=== PATIENT | female | born 1970 | race Caucasian/White ===

== ENCOUNTER 2019-05-19 13:08 | Inpatient (IN) | payer BC, OTHER ==
[2019-05-19] MEDS ORDERED: SODIUM CHLORIDE 0.9% 1,000 ML IV STA (13:50)
[2019-05-19] MEDS ORDERED: ASPIRIN 81 MG PO STA (13:50)
[2019-05-19] MEDS ORDERED: PANTOPRAZOLE 40 MG/10 ML VIAL IVP STA (13:51)
[2019-05-19] MEDS ORDERED: MAG HYDROX/AL HYDROX/SIMETH 30 ML, HYOSCYAMINE ELIXIR 10 ML, CIMETIDINE HCL 300 MG, LID... PO STA ×4 (13:51)
[2019-05-19 14:05] LABS: Basophils % (A) 0 %; Eosinophils # (A) 0.1 k/uL (0-0.7); Eosinophils % (A) 1 %; HCT 37.8 % (34.0-46.0); HGB 12.1 gm/dL (11.4-16.0); Lymphocytes # (A) 1.2 k/uL (1.0-4.8); Lymphocytes % (A) 11 %; MCHC 31.9 g/dL (31.0-37.0); MCV 78.2 fL (80.0-100.0); Mean Platelet Volume 7.7; Microcytosis Slight; Monocytes # (A) 0.5 k/uL (0-1.0); Monocytes % (A) 5 %; Neutrophils # (A) 8.5 k/uL (1.3-7.7); Neutrophils % (A) 81 %; Platelet Count 241 k/uL (150-450); RBC 4.83 m/uL (3.80-5.40); RDW 15.9 % (11.5-15.5); WBC 10.5 k/uL (3.8-10.6)
[2019-05-19 14:14] LABS: ALT 23 U/L (9-52); AST 23 U/L (14-36); African American GFR (CKD) >90 (>60 ml/min/1.73 sqM); Albumin 4.1 g/dL (3.5-5.0); Alkaline Phosphatase 112 U/L (38-126); Amylase 209 U/L (30-110); Anion Gap 12 mmol/L; Blood Urea Nitrogen 10 mg/dL (7-17); Calcium 9.3 mg/dL (8.4-10.2); Carbon Dioxide 21 mmol/L (22-30); Chloride 102 mmol/L (98-107); Glucose 194 mg/dL (74-99); Potassium 3.9 mmol/L (3.5-5.1); Sodium 135 mmol/L (137-145); Total Bilirubin 0.5 mg/dL (0.2-1.3); Total Protein 7.5 g/dL (6.3-8.2)
[2019-05-19 14:21] LABS: Partial Thromboplastin Time 27.4 sec (22.0-30.0); Prothrombin Time 10.6 sec (9.0-12.0)
[2019-05-19 14:27] LABS: D-Dimer 0.64 mg/L FEU (<0.60)
--- NOTE | 2019-05-19 14:48 | ED ---
General Adult HPI <Sravan Velazquez - Last Filed: 05/19/19 16:20> - General Source: patient, RN notes reviewed, old records reviewed Mode of arrival: ambulatory Limitations: no limitations <Cristela Ibanez - Last Filed: 05/19/19 16:37> - General Chief complaint: Chest Pain Stated complaint: R/O heart attack Time Seen by Provider: 05/19/19 13:44 - History of Present Illness Initial comments: 48-year-old female presents emergency department today for G complaint of epigastric abdominal pain. Symptoms started after drinking some coffee today. She had some symptoms on . She had her gallbladder evaluated the past but was told this was benign. Patient states she's had some nausea and complains of some epigastric pain radiates towards her back. Patient reports she went to urgent care and they did EKG was reviewed to be abnormal. Patient was sent in to rule out heart attack. Patient states that she does have a family history of heart disease. She reports no history of diabetes hypertens ion or hyperlipidemia. (Cristela Ibanez) - Related Data Allergies Allergy/AdvReac Type Severity Reaction Status Date / Time No Known Allergies Allergy Verified 05/19/19 13:18 Review of Systems ROS Other: All systems not noted in ROS Statement are negative. <Sravan Velazquez - Last Filed: 05/19/19 16:20> ROS Other: All systems not noted in ROS Statement are negative. <Cristela Ibanez - Last Filed: 05/19/19 16:37> ROS Statement: Those systems with pertinent positive or pertinent negative responses have been documented in the HPI. Past Medical History Past Medical History: GERD/Reflux Additional Past Medical History / Comment(s): IBS History of Any Multi-Drug Resistant Organisms: None Reported Past Surgical History: No Surgical Hx Reported Past Psychological History: No Psychological Hx Reported Smoking Status: Never smoker Past Alcohol Use History: None Reported Past Drug Use History: None Reported <Cristela Ibanez - Last Filed: 05/19/19 16:37> General Exam Limitations: no limitations General appearance: alert, in no apparent distress Head exam: Present: atraumatic, normocephalic, normal inspection Eye exam: Present: normal appearance, PERRL, EOMI. Absent: scleral icterus, conjunctival injection, periorbital swelling ENT exam: Present: normal exam, mucous membranes moist Neck exam: Present: normal inspection. Absent: tenderness, meningismus, lymphadenopathy Respiratory exam: Present: normal lung sounds bilaterally. Absent: respiratory distress, wheezes, rales, rhonchi, stridor Cardiovascular Exam: Present: regular rate, normal rhythm, normal heart sounds. Absent: systolic murmur, diastolic murmur, rubs, gallop, clicks GI/Abdominal exam: Present: soft, tenderness (Epigastric tenderness.) Extremities exam: Present: normal inspection, full ROM Back exam: Present: normal inspection Neurological exam: Present: alert Psychiatric exam: Present: normal affect, normal mood Skin exam: Present: warm, dry, intact, normal color. Absent: rash <Cristela Ibanez - Last Filed: 05/19/19 16:37> - General Exam Comments Initial Comments: Pleasant 48-year-old female. No significant distress. 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 Case discussed with Dr. Louise, who will admit covering for Dr. Patterson. (Sravan Velazquez) 8 rolled female originally presented for epigastric back and pain rating towards her back. Symptoms started she drank some coffee this point. She initially thought is related to gastritis and GERD. She states she went to urgent care who did an EKG. This EKG was reviewed to be abnormal with some inferior changes and sent her in for evaluation. She denies any chest pain at this time. Patient's labwork was reviewed. She did have an elevated amylase and lipase concern for pancreatitis. Blood sugar was mildly elevated 176 over this is not a fasting lab. Patient's EKG shows continued changes of the T-wave inversion in lead 3. Patient d-dimer slightly elevated. Due to concern for pancreatitis elevated d-dimer CT chest angiogram was completed which is negative for PE would not a completely adequate study. However low clinical suspicion for PE as Patient is not hypoxic and denies any chest pain or shortness of breath. Patient CT abdomen and pelvis was completed and did show some inflammatory changes around the pancreas. And simvastatin steatosis. No gallbladder changes. At this time Patient was admitted for acute pancreatitis. We will be troponin every 6 hours. (Cristela Ibanez) - Lab Data Lab Results 05/19/19 05/19/19 05/19/19 Range/Units 13:50 13:50 13:50 WBC 10.5 (3.8-10.6) k/uL RBC 4.83 (3.80-5.40) m/uL Hgb 12.1 (11.4-16.0) gm/dL Hct 37.8 (34.0-46.0) % MCV 78.2 L (80.0-100.0) fL MCH 25.0 (25.0-35.0) pg MCHC 31.9 (31.0-37.0) g/dL RDW 15.9 H (11.5-15.5) % Plt Count 241 (150-450) k/uL Neutrophils % 81 % Lymphocytes % 11 % Monocytes % 5 % Eosinophils % 1 % Basophils % 0 % Neutrophils # 8.5 H (1.3-7.7) k/uL Lymphocytes # 1.2 (1.0-4.8) k/uL Monocytes # 0.5 (0-1.0) k/uL Eosinophils # 0.1 (0-0.7) k/uL Basophils # 0.0 (0-0.2) k/uL Microcytosis Slight PT 10.6 (9.0-12.0) sec INR 1.0 (<1.2) APTT 27.4 (22.0-30.0) sec D-Dimer 0.64 H (<0.60) mg/L FEU Sodium 135 L (137-145) mmol/L Potassium 3.9 (3.5-5.1) mmol/L Chloride 102 (98-107) mmol/L Carbon Dioxide 21 L (22-30) mmol/L Anion Gap 12 mmol/L BUN 10 (7-17) mg/dL Creatinine 0.68 (0.52-1.04) mg/dL Est GFR (CKD-EPI)AfAm >90 (>60 ml/min/1.73 sqM) Est GFR (CKD-EPI)NonAf >90 (>60 ml/min/1.73 sqM) Glucose 194 H (74-99) mg/dL Calcium 9.3 (8.4-10.2) mg/dL Magnesium 2.0 (1.6-2.3) mg/dL Total Bilirubin 0.5 (0.2-1.3) mg/dL AST 23 (14-36) U/L ALT 23 (9-52) U/L Alkaline Phosphatase 112 (38-126) U/L Troponin I (0.000-0.034) ng/mL NT-Pro-B Natriuret Pep pg/mL Total Protein 7.5 (6.3-8.2) g/dL Albumin 4.1 (3.5-5.0) g/dL Amylase 209 H (30-110) U/L Lipase 1967 H (23-300) U/L 05/19/19 05/19/19 Range/Units 13:50 13:50 WBC (3.8-10.6) k/uL RBC (3.80-5.40) m/uL Hgb (11.4-16.0) gm/dL Hct (34.0-46.0) % MCV (80.0-100.0) fL MCH (25.0-35.0) pg MCHC (31.0-37.0) g/dL RDW (11.5-15.5) % Plt Count (150-450) k/uL Neutrophils % % Lymphocytes % % Monocytes % % Eosinophils % % Basophils % % Neutrophils # (1.3-7.7) k/uL Lymphocytes # (1.0-4.8) k/uL Monocytes # (0-1.0) k/uL Eosinophils # (0-0.7) k/uL Basophils # (0-0.2) k/uL Microcytosis PT (9.0-12.0) sec INR (<1.2) APTT (22.0-30.0) sec D-Dimer (<0.60) mg/L FEU Sodium (137-145) mmol/L Potassium (3.5-5.1) mmol/L Chloride (98-107) mmol/L Carbon Dioxide (22-30) mmol/L Anion Gap mmol/L BUN (7-17) mg/dL Creatinine (0.52-1.04) mg/dL Est GFR (CKD-EPI)AfAm (>60 ml/min/1.73 sqM) Est GFR (CKD-EPI)NonAf (>60 ml/min/1.73 sqM) Glucose (74-99) mg/dL Calcium (8.4-10.2) mg/dL Magnesium (1.6-2.3) mg/dL Total Bilirubin (0.2-1.3) mg/dL AST (14-36) U/L ALT (9-52) U/L Alkaline Phosphatase (38-126) U/L Troponin I <0.012 (0.000-0.034) ng/mL NT-Pro-B Natriuret Pep 50 pg/mL Total Protein (6.3-8.2) g/dL Albumin (3.5-5.0) g/dL Amylase (30-110) U/L Lipase (23-300) U/L 05/19/19 16:25 EKG is performed at 1420 shows normal sinus rhythm inferior infarct age undetermined. Abnormal EKG. Ventricular rate of 82 bpm. Intervals 166 ms. QRS duration is 74 ms. QT QTc is 376/439 ms. Reviewed patient's EKG at 11:52 AM shows no acute changes. (Cristela Ibanez) - Radiology Data Patient was breathing during exam CT angios lipoma or embolus. Many of the lobar and segmental more distal arterial branches are nondiagnostic and emboli in these locations cannot be adequately excluded on basis of the study. Hypoventilatory changes. Hepatic C ptosis noted. This was read by Dr. Lee. X-ray is negative for any acute crit primary process. CT abdomen and pelvis shows atrophic pancreas with subtle fat stranding along the pancreatic head. Correlate for mild acute pancreatitis. Borderline hepatomegaly with hepatic steatosis. Mild distal sigmoid diverticulosis IUD in place with a 2.1 cm left fundal fibroid. (Cristela Ibanez) Disposition <Sravan Velazquez - Last Filed: 05/19/19 16:20> Is patient prescribed a controlled substance at d/c from ED?: No Time of Disposition: 16:37 <Cristela Ibanez - Last Filed: 05/19/19 16:37> Clinical Impression: Pancreatitis, EKG abnormalities Disposition: ADMITTED IP TO THIS HOSP Condition: Good Instructions (If sedation given, give patient instructions): Pancreatitis (ED) Referrals: Trudy Patterson DO [Primary Care Provider] - 1-2 days
--- NOTE | 2019-05-19 15:17 | XR ---
EXAMINATION TYPE: XR chest 2V DATE OF EXAM: 05/19/2019 COMPARISON: None HISTORY: 48-year-old female with chest pain TECHNIQUE: PA and lateral views FINDINGS: The cardiomediastinal silhouette, aorta, and pulmonary vasculature are within normal limits. Lungs an d pleural spaces are clear. IMPRESSION: No acute cardiopulmonary process.
--- NOTE | 2019-05-19 15:34 | CT ---
EXAMINATION TYPE: CT chest angio for PE DATE OF EXAM: 05/19/2019 COMPARISON: None HISTORY: 48-year-old female Epigastric and Upper Abdominal pain. TECHNIQUE: Contiguous axial scanning of the chest performed with IV Contrast, patient injected with 1 00 mL of Isovue 370. Coronal/sagittal MIP reconstructions performed. CT DLP: 569.3 mGycm Automated exposure control for dose reduction was used. FINDINGS: Heart upper limits of normal in size without pericardial effusion. While there is satisfactory opacification of the pulmonary arterial system, the patient is breathing during the scan degrading assessment. No large central pulmonary embolus. Many of the lobar, segmenta l, and subsegmental branches are nondiagnostic and emboli in these locations cannot be adequately exc luded on the basis of this study. Aorta normal caliber with conventional branching anatomy. Scattered nonenlarged lymph nodes. Evaluation of the lungs shows an atelectasis. Breathing motion artifacts without consolidation or ple ural effusion. Visualized upper abdomen shows low-attenuation of the liver. Bones: No osseous destructive process. IMPRESSION: 1. PATIENT WAS BREATHING DURING THE SCAN. NO LARGE CENTRAL PULMONARY EMBOLUS. MANY OF THE LOBAR, SEGM ENTAL, AND MORE DISTAL ARTERIAL BRANCHES ARE NONDIAGNOSTIC AND EMBOLI IN THESE LOCATIONS CANNOT BE AD EQUATELY EXCLUDED ON THE BASIS OF THIS STUDY. 2. HYPOVENTILATORY CHANGES. 3. HEPATIC STEATOSIS.
--- NOTE | 2019-05-19 16:01 | CT ---
EXAMINATION TYPE: CT abdomen pelvis w con DATE OF EXAM: 05/19/2019 COMPARISON: 06/25/2016 HISTORY: 48-year-old female Epigastric and Upper Abdominal pain. TECHNIQUE: Contiguous axial scanning of the abdomen and pelvis following administration of 100 ml Iso johanna 300 IV contrast. Delayed images through the kidneys and coronal/sagittal reconstructions perform ed. CT DLP: 1619.6 mGycm Automated exposure control for dose reduction was used. FINDINGS: The heart is normal size without pericardial effusion. Liver borderline enlarged at 17.7 cm with low attenuation and no focal liver lesion or biliary ductal dilatation. Portal venous system is patent. Adrenal glands, kidneys, and spleen appear within normal limits. Pancreas atrophic with mild fat stranding along the pancreatic head and neck region. Some prominent adjacent Mesenteric lymph nodes measuring up to 5 mm in the mid abdomen likely reactive. No dilated small bowel, free fluid, or free air. Normal appendix. Scattered mild stool. Mild distal sigmoid diverticulosis. No pericolonic inflammator y change. Uterus anteverted with IUD in place in the left fundal calcified 2.1 cm focal fibroid. Multiple pelvi c phleboliths. Both ovaries are visualized. No abnormal fluid collection in the pelvis or pelvic lymp hadenopathy. Bones: Facet arthropathy lower lumbar spine. IMPRESSION: 1. ATROPHIC PANCREAS WITH SUBTLE FAT STRANDING ALONG THE PANCREATIC HEAD AND NECK REGION. CORRELATE F OR MILD ACUTE PANCREATITIS. 2. BORDERLINE HEPATOMEGALY (17.7 CM) WITH HEPATIC STEATOSIS. 3. MILD DISTAL SIGMOID DIVERTICULOSIS. IUD IN PLACE WITH A 2.1 CM LEFT FUNDAL FIBROID.
[2019-05-19] MEDS ORDERED: MORPHINE SULFATE 4 MG/ML SYRINGE IV PRN (16:37)
[2019-05-19] MEDS ORDERED: ONDANSETRON 4 MG/2 ML VIAL IVP PRN (16:37)
[2019-05-19] MEDS ORDERED: KETOROLAC 30 MG/ML 1 ML VIAL IVP PRN (16:37)
[2019-05-19] MEDS ORDERED: NALOXONE 0.4 MG/ML 1 ML VIAL IV PRN (16:37)
[2019-05-19] MEDS ORDERED: ACETAMINOPHEN TAB 325 MG TAB PO PRN (16:37)
[2019-05-19] MEDS ORDERED: HYDROcodone/APAP 5-325MG 1 EACH TAB PO PRN (16:56)
[2019-05-19] MEDS ORDERED: ALPRAZolam 0.25 MG TAB PO PRN (16:56)
[2019-05-19] MEDS ORDERED: TEMAZEPAM 15 MG CAP PO PRN (16:56)
[2019-05-19] MEDS ORDERED: VANCOMYCIN IV PER PHARMACY 1 EACH MISC MISCELLANE PRN (17:13)
[2019-05-19] MEDS ORDERED: VANCOMYCIN 1,750 MG in SODIUM CHLORIDE 0.9% 500 ML 500 ML IVPB ONE (18:00)
--- NOTE | 2019-05-19 18:43 | HP ---
HISTORY AND PHYSICAL . CHIEF COMPLAINT: Epigastric pain. HISTORY OF PRESENT ILLNESS: This 48-year-old woman with a past medical history of GERD, history of irritable bowel syndrome, being followed by Dr. Tomlin in the outpatient setting, was complaining of epigastric pain. The patient has some nausea also. The pain was radiating to the back and the patient came to [facility] and was admitted to the hospital for further evaluation and treatment. Amylase levels elevated. CT scan also showed some changes of pancreatitis and there is no history of fever, rigors or chills. No history of headache, loss of consciousness or seizures at this time. EKG showed some changes in the inferior leads. CT angio was negative for acute pulmonary embolism. The cardiology evaluation in progress also. Troponins are negative also at this time. There is no history of fever, rigors or chills. No history of headache, loss of consciousness, seizures, shortness of breath, hematochezia, melena at this time. The patient also had left leg cellulitis, was taking taken Bactrim in the outpatient setting. PAST MEDICAL HISTORY: GERD, history of irritable bowel syndrome. MEDICATIONS: Home medications are none. ALLERGIES: None. FAMILY HISTORY: No history of heart disease or strokes in the family. 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 No history of smoking. Occasional alcohol intake. REVIEW OF SYSTEMS: ENT: No diminished vision. No diminished hearing. CARDIOVASCULAR system: As mentioned earlier. RESPIRATORY: As mentioned earlier. GI mentioned earlier. no dysuria or hematuria. NERVOUS SYSTEM: No numbness or weakness. ALLERGY/IMMUNOLOGY: No asthma or hayfever. MUSCULOSKELETAL as mentioned earlier. HEMATOLOGY/ONCOLOGY: No history of anemia. ENDOCRINE: No history of diabetes or hypothyroidism. CONSTITUTIONAL: As mentioned earlier. DERMATOLOGY negative. RHEUMATOLOGY: Negative. PSYCHIATRIC: As mentioned earlier. PHYSICAL EXAMINATION: Alert and oriented x3. Pulse is 91, blood pressure 146/85, respiration 18, temp 97.8, pulse ox 98% on room air. HEENT: Conjunctivae normal. NECK: No JVD. CARDIOVASCULAR: S1, S2 muffled. RESPIRATORY: Breath sounds diminished in the bases. No rhonchi. No crackles. ABDOMEN: Soft. Mild diffuse tenderness in the epigastric region. No guarding. No rigidity. No mass palpable. LEGS: No edema. No swelling. NERVOUS SYSTEM: Higher functions as mentioned earlier. Moves all four extremities. No focal motor or sensory deficits. LYMPHATICS: No lymph nodes palpable in the neck, axillae or groin. SKIN: No ulcers. No rashes. No bleeding. JOINTS: No active deforming arthropathy. LAB STUDIES: WBC 10.5, hemoglobin is 12.1, and D-dimer is 0.64. Sodium 135 and glucose 194. Amylase is 209 and lipase is 196. ASSESSMENT: 1. Epigastric pain, possible acute pancreatitis of unknown etiology. 2. Rule out coronary artery disease. 3. ST-T changes in the EKG. 4. Hyponatremia. 5. Elevated amylase and lipase. 6. Hyponatremia. 7. Gastroesophageal reflux disease. 8. History of irritable bowel syndrome. 9. Left leg cellulitis. RECOMMENDATIONS AND DISCUSSION: In this 48 -year-old woman who presented with multiple complex medical issues, we will monitor the patient closely. Continue the current medications, management and symptomatic treatment. We will obtain gastroenterology evaluation. Otherwise, I would also recommend ultrasound of the gallbladder also. Otherwise, Gastroenterology and cardiology consultations. Guarded prognosis because of multiple complex medical issues. Further recommendations to follow. Once again the prognosis guarded. The patient is currently stable at this time. MMODL / IJN: [id number] /
[2019-05-19] MEDS: SODIUM CHLORIDE 0.9% 1,000 ML IV SCH (19:59)
[2019-05-19 20:44] LABS: Appearance,Urine Clear (Clear); Bacteria,Urine Rare /hpf; Bilirubin,Urine Negative (Negative); Blood,Urine Small (Negative); Color,Urine Yellow; Glucose,Urine (UA) Negative (Negative); Ketones,Urine Trace (Negative); Leukocyte Esterase,Urine Negative (Negative); Nitrite,Urine Negative (Negative); PH, Urine 6.5 (5.0-8.0); Protein,Urine Negative (Negative); RBC,Urine 8 /hpf (0-5); Squamous Epithelial Cell,Urine 2 /hpf (0-4); Urobilinogen,Urine <2.0 mg/dL (<2.0); WBC,Urine 2 /hpf (0-5)
[2019-05-19 20:48] LABS: Specific Gravity,Urine 1.046 (1.001-1.035)
[2019-05-19] MEDS: IBUPROFEN 400 MG TAB PO PRN (22:21)
--- NOTE | 2019-05-19 22:27 | US ---
EXAMINATION TYPE: US gallbladder DATE OF EXAM: 05/19/2019 COMPARISON: CT same-day CLINICAL HISTORY: 48-year-old female with gallstones. Epigastric pain TECHNIQUE: Multiple sonographic images of the right upper quadrant are obtained. FINDINGS: EXAM MEASUREMENTS: Liver Length: 15.2 cm Gallbladder Wall: 0.2 cm CBD: 0.4 cm Right Kidney: 10.1 x 4.8 x 4.9 cm Computer Information Systems Professor notes: Technically difficult study due to overlying bowel gas. Pancreas: Obscured by bowel gas Liver: Echogenic and difficult to penetrate. This secondarily limits assessment for focal lesions. Gallbladder: Abnormal gallbladder distention, wall thickening, pericholecystic fluid, or shadowing c alculi. Evidence for sonographic Beckman's sign: No CBD: wnl Right Kidney: No hydronephrosis. The lower pole partially obscured by bowel gas. IMPRESSION: 1. Degree of hepatic steatosis limits assessment for focal lesions. Correlate with LFTs, lipid profil e, and patient risk factors. 2. No cholelithiasis or acute cholecystitis. 3. The pancreas is obscured by bowel gas. 4. No biliary ductal dilatation.
[2019-05-20] MEDS: SODIUM CHLORIDE 0.9% 1,000 ML IV SCH ×2 (03:39→21:03)
[2019-05-20 06:01] LABS: Anisocytosis Slight; Basophils % (A) 0 %; Eosinophils # (A) 0.2 k/uL (0-0.7); Eosinophils % (A) 2 %; HCT 36.3 % (34.0-46.0); Lymphocytes # (A) 1.3 k/uL (1.0-4.8); Lymphocytes % (A) 14 %; MCH 26.4 pg (25.0-35.0); MCHC 33.1 g/dL (31.0-37.0); MCV 79.6 fL (80.0-100.0); Mean Platelet Volume 7.9; Monocytes # (A) 0.4 k/uL (0-1.0); Monocytes % (A) 5 %; Neutrophils % (A) 77 %; Platelet Count 240 k/uL (150-450); RBC 4.56 m/uL (3.80-5.40); RDW 16.5 % (11.5-15.5)
[2019-05-20 06:21] LABS: ALT 21 U/L (9-52); AST 20 U/L (14-36); African American GFR (CKD) >90 (>60 ml/min/1.73 sqM); Albumin 3.6 g/dL (3.5-5.0); Alkaline Phosphatase 99 U/L (38-126); Amylase 202 U/L (30-110); Anion Gap 11 mmol/L; Blood Urea Nitrogen 9 mg/dL (7-17); Calcium 8.7 mg/dL (8.4-10.2); Carbon Dioxide 21 mmol/L (22-30); Chloride 106 mmol/L (98-107); Cholesterol 131 mg/dL (<200); Glucose 153 mg/dL (74-99); HDL Cholesterol 60 mg/dL (40-60); LDL Cholesterol,Calculated 50 mg/dL (0-99); Potassium 4.1 mmol/L (3.5-5.1); Sodium 138 mmol/L (137-145); Total Bilirubin 0.7 mg/dL (0.2-1.3); Total Protein 6.9 g/dL (6.3-8.2); Triglycerides 103 mg/dL (<150)
[2019-05-20] MEDS ORDERED: PANTOPRAZOLE 40 MG/10 ML VIAL IV SCH (09:00)
[2019-05-20] MEDS: IBUPROFEN 400 MG TAB PO PRN (09:31)
[2019-05-20] MEDS: VANCOMYCIN 1,500 MG in SODIUM CHLORIDE 0.9% 250 ML IVPB SCH ×2 (09:32→21:12)
--- NOTE | 2019-05-20 09:38 | P.CONS ---
History of Present Illness - Reason for Consult Consult date: 05/19/19 Left leg wound and cellulitis Requesting physician: Cristian Louise - Chief Complaint Epigastric pain 1 day, left leg wound 1 week - History of Present Illness Patient is a 48-year-old female presenting to the ER at [facility] with an epigastric pain that apparently started this morning after drinking coffee the patient did have similar pain 2 days prior that resolved without any intervention patient describing her pain in the epigastric area to be more of a sharp in nature with intensity of 7-8 out of 10 and irritation to the back with associated nausea but no vomiting denies having any fever or any chills with the symptom has the patient was evaluated by the ER physician CT angiogram was nondiagnostic as the patient was breathing during the procedure she did have CT of abdominal pelvis that has been suspicious for pancreatitis and the patient did have elevated amylase and lipase, Patient was also noticed to have a left leg wound with minimal cellulitis patient says started as a pimple about a week ago and has slight increase in size with surrounding redness he did have some dull ache pain to the left leg area intensity is 2-3 out of 10 and no radiation the patient says she was seen by her primary care physician has been started on Bactrim with the patient has not started Review of Systems CONSTITUTIONAL: Positive for weakness. Denies high-grade Fever EYES: No complaint. ENT:No complaint. RESPIRATORY: No complaint. CARDIOVASCULAR: No complaint. GENITOURINARY: No complaint. GASTROINTESTINAL: As per history of present illness MUSCULOSKELETAL: No complaint. INTEGUMENTARY: As per history of present illness PSYCHOLOGICAL: No complaint. ENDOCRINE: No complaint. NEUROLOGIC: No complaint. Past Medical History Past Medical History: GERD/Reflux Additional Past Medical History / Comment(s): IBS History of Any Multi-Drug Resistant Organisms: None Reported Past Surgical History: No Surgical Hx Reported Past Psychological History: No Psychological Hx Reported Smoking Status: Never smoker Past Alcohol Use History: None Reported Past Drug Use History: None Reported Medications and Allergies Home Medications Medication Instructions Recorded Confirmed Type Dicyclomine [Bentyl] 10 mg PO QID PRN 05/19/19 05/19/19 History Ranitidine HCl [Zantac] 150 mg PO BID PRN 05/19/19 05/19/19 History Sulfamethox-Tmp 800-160Mg [Bactrim 1 tab PO Q12H 05/19/19 05/19/19 History DS 800-160 mg] Allergies Allergy/AdvReac Type Severity Reaction Status Date / Time No Known Allergies Allergy Verified 05/19/19 17:00 Physical Exam Vitals: Vital Signs Temp Pulse Pulse Resp BP Pulse Ox 05/19/19 15:56 97.8 F 91 18 156/85 99 05/19/19 13:51 74 05/19/19 13:23 154/90 05/19/19 13:18 97.8 F 83 18 100 Intake and Output 05/19/19 05/19/19 05/19/19 06:59 14:59 22:59 Other: Weight 90.718 kg GENERAL DESCRIPTION: Middle-aged female lying in bed, no distress. No tachypnea or accessory muscle of respiration use. HEENT: Shows Pallor , no scleral icterus. Oral mucous membrane is dry. No pharyngeal erythema or thrush NECK: Trachea central, no thyromegaly. LUNGS: Unlabored breathing. Clear to auscultation anteriorly. No wheeze or crackle. HEART: S1, S2, regular rate and rhythm. No loud murmur ABDOMEN: Soft, mild epigastric tenderness , no guarding or rigidity, no organomegaly EXTREMITIES: Left anterior leg with a pustule with surrounding redness slightly tender to touch the area was cleaned and cultures were obtained SKIN: No rash, no masses palpable. NEUROLOGICAL: The patient is awake, alert, oriented x3, mood and affect normal. Results CBC & Chem 7: 05/20/19 05:38 05/20/19 05:38 Labs: Abnormal Lab Results - Last 24 Hours (Table) 05/19/19 05/19/19 05/19/19 Range/Units 13:50 13:50 13:50 MCV 78.2 L (80.0-100.0) fL RDW 15.9 H (11.5-15.5) % Neutrophils # 8.5 H (1.3-7.7) k/uL D-Dimer 0.64 H (<0.60) mg/L FEU Sodium 135 L (137-145) mmol/L Carbon Dioxide 21 L (22-30) mmol/L Glucose 194 H (74-99) mg/dL Amylase 209 H (30-110) U/L Lipase 1967 H (23-300) U/L Assessment and Plan Assessment: 1-patient presented to hospital with abdominal pain mostly in the epigastric area with elevated amylase and lipase and abnormal CT suspicious for acute pancreatitis with no evidence of any complication at the moment 2-left leg pustule with secondary cellulitis likely secondary to gram-positive skin blayne with concern for possible staph aureus infection (1) Left leg cellulitis Current Visit: Yes Status: Acute Code(s): L03.116 - CELLULITIS OF LEFT LOWER LIMB SNOMED Code(s): 929352674 (2) Pancreatitis Current Visit: Yes Status: Acute Code(s): K85.90 - ACUTE PANCREATITIS W ITHOUT NECROSIS OR INFECTION, UNSP SNOMED Code(s): 33193845 Plan: 1-local wound culture has been obtained regarding antibiotic therapy 2--vancomycin pharmacy to dose target trough of 15 while watching her kidney function and Vanco trough closely we will follow on clinical condition and culture to further adjust medication if needed Thank you for this consultation will follow this patient along with you Time with Patient: Greater than 30
--- NOTE | 2019-05-20 11:31 | P.CRDCN ---
History of Present Illness History of present illness: This is a pleasant 48-year-old female past medical history significant for reflux disease. She denies history of hypertension, dyslipidemia, diabetes mellitus or coronary artery disease. We have seen her in consultation secondary to an abnormal EKG per to presented to the hospital with symptoms of epigastric discomfort that radiated through to her back. This discomfort started yesterday morning after getting up and moving around. She states she had not yet eaten breakfast. Her was no radiation to the arm, neck or jaw. There was no associated shortness of breath, dizziness, nausea, vomiting, diaphoresis or palpitations. Laboratory data investigation revealed elevated amylase and lipase. Lipid profile, LDL 50, HDL 60 and triglycerides 103. ProBNP 50, creatinine 0.68. She is currently being treated for pancreatitis. CT of the abdomen and pelvis revealed atrophic pancreas suggestive of acute pancreatitis. EKG revealed sinus mechanism with T-wave inversions in the inferior leads. No old EKG for comparison. She takes no daily cardiac medications and has never had any stress testing or echocardiography in the past. At the time of my exam: CONSTITUTIONAL: Denies fever. Denies chills. EYES: Denies blurred vision. Denies vision changes. Denies eye pain. EARS, NOSE, MOUTH & THROAT: Denies headache. Denies sore throat. Denies ear pain. CARDIOVASCULAR: Denies chest pain. Denies shortness of breath. Denies orthopnea. Denies PND. Denies palpitations. RESPIRATORY: Denies cough. GASTROINTESTINAL: Complains of ongoing epigastric discomfort that is mild. Denies abdominal pain. Denies diarrhea. Denies constipation. Denies nausea. Denies vomiting. MUSCULOSKELETAL: Denies myalgias. INTEGUMENTARY: Denies pruitis. Denies rash. NEUROLOGIC: Denies numbness. Denies tingling. Denies weakness. PSYCHIATRIC: Denies anxiety. Denies depression. ENDOCRINE: Denies fatigue. Denies weight change. Denies polydipsia. Denies polyurina. GENITOURINARY: Denies burning, hematuria or urgency with micturation. HEMATOLOGIC: Denies history of anemia. Denies bleeding. Blood pressure 126/82 heart rate 75 afebrile maintaining oxygen saturation on room air GENERAL: This is a 48-year-old female in no apparent distress at the time of my examination. HEENT: Head is atraumatic, normocephalic. Pupils are equal, round. Sclerae anicteric. Conjunctivae are clear. Mucous membranes of the mouth are moist. Neck is supple. There is no jugular venous distention. No carotid bruit is heard. LUNGS: Clear to auscultation no wheezes, rales or rhonchi. No chest wall tenderness is noted on palpation or with deep breathing. HEART: Regular rate and rhythm without murmurs, rubs or gallops. S1 and S2 heard. ABDOMEN: Soft, nontender. Bowel sounds are heard. No organomegaly noted. EXTREMITIES: No evidence of peripheral edema and no calf tenderness noted. VASCULAR: Radial and dorsalis pedis pulses palpated, no evidence of clubbing. NEUROLOGIC: Patient is awake, alert and oriented x3. ASSESSMENT Epigastric discomfort. An acute coronary event has been ruled out. Abnormal EKG Acute pancreatitis PLAN An acute coronary event has been ruled out. Obtain 2-D echocardiogram and Doppler study to assess cardiac structure and function. Ongoing medical management of acute pancreatitis. Patient will require stress testing outpatient setting. If echocardiogram is normal she may be discharged and follow-up with Dr. Montenegro in one to 2 weeks. Thank you kindly for this consultation. Nurse Practitioner note has been reviewed, I agree with a documented findings and plan of care. Patient was seen and examined. Past Medical History Past Medical History: GERD/Reflux Additional Past Medical History / Comment(s): IBS History of Any Multi-Drug Resistant Organisms: None Reported Past Surgical History: No Surgical Hx Reported Past Psychological History: No Psychological Hx Reported Smoking Status: Never smoker Past Alcohol Use History: None Reported Past Drug Use History: None Reported Medications and Allergies Home Medications Medication Instructions Recorded Confirmed Type Dicyclomine [Bentyl] 10 mg PO QID PRN 05/19/19 05/19/19 History Ranitidine HCl [Zantac] 150 mg PO BID PRN 05/19/19 05/19/19 History Sulfamethox-Tmp 800-160Mg [Bactrim 1 tab PO Q12H 05/19/19 05/19/19 History DS 800-160 mg] Allergies Allergy/AdvReac Type Severity Reaction Status Date / Time No Known Allergies Allergy Verified 05/19/19 17:00 Physical Exam Vitals: Vital Signs Temp Pulse Pulse Pulse Resp BP BP 05/20/19 07:00 98.1 F 75 16 126/82 05/20/19 00:42 98.2 F 77 14 143/79 05/19/19 19:59 98.1 F 16 128/80 05/19/19 15:56 97.8 F 91 18 156/85 05/19/19 13:51 74 05/19/19 13:23 154/90 05/19/19 13:18 97.8 F 83 18 Pulse Ox 05/20/19 07:00 99 05/20/19 00:42 98 05/19/19 19:59 97 05/19/19 15:56 99 05/19/19 13:51 05/19/19 13:23 05/19/19 13:18 100 Intake and Output 05/19/19 05/20/19 05/20/19 22:59 06:59 14:59 Intake Total 750 1000 Balance 750 1000 Intake: Intake, IV Titration 750 1000 Amount Sodium Chloride 0.9% 1, 250 1000 000 ml @ 125 mls/hr IV . Q8H [facility] Rx#:[id number] Vancomycin 1,750 mg In 500 Sodium Chloride 0.9% 500 ml 500 ml @ 167 mls/hr IVPB ONCE ONE Rx#: [id number] Other: # Voids 1 Results 05/20/19 05:38 05/20/19 05:38 Cardiac Enzymes 05/19/19 05/19/19 05/19/19 Range/Units 13:50 13:50 20:44 AST 23 (14-36) U/L Troponin I <0.012 <0.012 (0.000-0.034) ng/mL 05/20/19 Range/Units 05:38 AST 20 (14-36) U/L Troponin I (0.000-0.034) ng/mL Coagulation 05/19/19 Range/Units 13:50 PT 10.6 (9.0-12.0) sec APTT 27.4 (22.0-30.0) sec Lipids 05/20/19 Range/Units 05:38 Triglycerides 103 (<150) mg/dL Cholesterol 131 (<200) mg/dL HDL Cholesterol 60 (40-60) mg/dL CBC 05/19/19 05/20/19 Range/Units 13:50 05:38 WBC 10.5 9.0 (3.8-10.6) k/uL RBC 4.83 4.56 (3.80-5.40) m/uL Hgb 12.1 12.0 (11.4-16.0) gm/dL Hct 37.8 36.3 (34.0-46.0) % Plt Count 241 240 (150-450) k/uL Comprehensive Metabolic Panel 05/19/19 05/20/19 Range/Units 13:50 05:38 Sodium 135 L 138 (137-145) mmol/L Potassium 3.9 4.1 (3.5-5.1) mmol/L Chloride 102 106 (98-107) mmol/L Carbon Dioxide 21 L 21 L (22-30) mmol/L BUN 10 9 (7-17) mg/dL Creatinine 0.68 0.68 (0.52-1.04) mg/dL Glucose 194 H 153 H (74-99) mg/dL Calcium 9.3 8.7 (8.4-10.2) mg/dL AST 23 20 (14-36) U/L ALT 23 21 (9-52) U/L Alkaline Phosphatase 112 99 (38-126) U/L Total Protein 7.5 6.9 (6.3-8.2) g/dL Albumin 4.1 3.6 (3.5-5.0) g/dL Current Medications Generic Name Dose Route Start Last Admin Trade Name Freq PRN Reason Stop Dose Admin Acetaminophen 650 mg 05/19/19 16:37 Tylenol Tab PO Q6HR PRN Mild Pain or Fever > 100.5 Hydrocodone Bitart/Acetaminophen 1 each 05/19/19 16:56 [place] 5-325 PO Q6HR PRN Moderate Pain Alprazolam 0.25 mg 05/19/19 16:56 Xanax PO TID PRN Anxiety Sodium Chloride 1,000 mls @ 125 mls/hr 05/19/19 16:45 05/20/19 03:39 Saline 0.9% IV Not Given .Q8H [facility] Vancomycin HCl 1,500 mg/ 250 mls @ 125 mls/hr 05/20/19 08:00 Sodium Chloride IVPB Q12H [facility] Ibuprofen 400 mg 05/19/19 16:37 05/19/19 22:21 Motrin PO 400 mg Q6HR PRN Administration Mild Pain or Fever > 100.5 Morphine Sulfate 4 mg 05/19/19 16:37 Morphine Sulfate (Inj) IV Q4HR PRN Severe Pain Naloxone HCl 0.2 mg 05/19/19 16:37 Narcan IV Q2M PRN Opioid Reversal Ondansetron HCl 4 mg 05/19/19 16:37 Zofran IVP Q8HR PRN Nausea And Vomiting Pantoprazole Sodium 40 mg 05/20/19 09:00 Protonix IV DAILY [facility] Temazepam 15 mg 05/19/19 16:56 Restoril PO HS PRN Insomnia Intake and Output 05/19/19 05/20/19 05/20/19 22:59 06:59 14:59 Intake Total 750 1000 Balance 750 1000 Intake: Intake, IV Titration 750 1000 Amount Sodium Chloride 0.9% 1, 250 1000 000 ml @ 125 mls/hr IV . Q8H [facility] Rx#:[id number] Vancomycin 1,750 mg In 500 Sodium Chloride 0.9% 500 ml 500 ml @ 167 mls/hr IVPB ONCE ONE Rx#: [id number] Other: # Voids 1 05/20/19 05:38 05/20/19 05:38
--- NOTE | 2019-05-20 15:55 | CONS ---
CONSULTATION DATE OF DICTATION: 05/20/2019 The patient is a 48-year-old pleasant white female admitted to the hospital with severe onset of epigastric pain associated with some nausea, vomiting that started yesterday morning, came to the emergency room and subsequently was noted to have elevated amylase and lipase consistent with acute pancreatitis. She also had CT of the abdomen and pelvis done that showed changes of acute pancreatitis with peripancreatic edema. This morning she is feeling much better. Abdominal pain has resolved. No further episodes of nausea, vomiting. She never had acute pancreatitis in the past. She had an episode of severe epigastric pain about 10 years ago, was admitted to the hospital, had an upper endoscopy done and was told she has gastritis. Since then, she has been on Zantac and has been doing well. She reports no recent NSAID use. Denies any new medications that were given to her recently. No family history of acute pancreatitis. Denies any alcohol use. PAST MEDICAL HISTORY: GERD, irritable bowel syndrome. MEDICATIONS: At home, Zantac as needed. ALLERGIES: None. SOCIAL HISTORY: No smoking. Occasional alcohol use. FAMILY HISTORY: Unremarkable. REVIEW OF SYSTEMS: Cardiopulmonary: No chest pain, shortness of breath. GENITOURINARY: No dysuria, hematuria. MUSCULOSKELETAL: Unremarkable. SKIN unremarkable. ENDOCRINE unremarkable. PSYCHIATRIC unremarkable. NEUROLOGY unremarkable. ENT/vision unremarkable. CONSTITUTIONAL: No recent weight loss. No fever, chills, night sweats. PHYSICAL EXAMINATION: Blood pressure is 143/79, pulse 77, temperature 98.2. HEENT examination unremarkable. Conjunctivae pink. Sclerae anicteric. Oral cavity no lesions. NECK: No JVD or lymph node enlargement. CHEST: Clear to auscultation. HEART: Regular rate and rhythm. ABDOMEN: Soft. Bowel sounds positive. No organomegaly. Mild tenderness in the epigastric area. EXTREMITIES: No pedal edema. SKIN: No rashes. NEUROLOGICAL: Alert and oriented times three. No focal deficits. LAB DATA: Done at the time of admission to the hospital, amylase is 202, lipase is 2221. AST, ALT, T-bilirubin and alkaline phosphatase are normal. WBC 9, hemoglobin 12, platelets are 240. IMPRESSION: This is a lady who presents to the hospital with acute onset of severe epigastric pain associated with nausea, vomiting since yesterday morning and noted to have elevated amylase and lipase consistent with acute pancreatitis. She denies any alcohol history. She did have an ultrasound of the gallbladder done yesterday that showed evidence of hepatic steatosis, but no evidence of cholelithiasis. CT of the abdomen showed changes of mild acute pancreatitis. The etiology of pancreatitis remains unclear, which needs to be worked up on an outpatient basis. RECOMMENDATIONS: 1. We will start her on clear liquid diet. 2. Repeat labs in the morning. 3. The patient was advised to follow up in the office in 1-2 weeks following discharge from the hospital for further workup on an outpatient basis. Thank you for this consultation. MMODL / IJN: [id number] /
--- NOTE | 2019-05-20 20:10 | PN ---
PROGRESS NOTE DATE OF SERVICE: 05/20/2019. This 48-year-old woman was admitted with epigastric pain and features of acute pancreatitis, the ultrasound of the abdomen showed hepatic steatosis. No cholelithiasis. CT scan of the abdomen and pelvis showed atrophy, pancreatitis, septal fat stranding and borderline hepatomegaly. Cardiology and gastroenterology following the patient closely. Myocardial infarction has been ruled out. Cardiology recommended outpatient stress test. No chest pain. No palpitation. EXAM: Alert and oriented x3. Pulse is 74. Blood pressure 140/76, respiration 18, temperature 97.8, pulse ox 99% on room air. HEENT: Conjunctivae normal. NECK: No JVD. CARDIOVASCULAR: S1, S2 muffled. RESPIRATIONS: Breath sounds diminished in the bases. No rhonchi. No crackles. ABDOMEN is soft. Mild diffuse tenderness in the epigastrium. No mass palpable. LEGS are no edema. No swelling. CENTRAL NERVOUS SYSTEM: No focal deficits. LABS: WBC 9, hemoglobin is 12. Sodium 138, potassium 4.1. Amylase 201 and lipase is 221. ASSESSMENT: 1. Epigastric pain with acute pancreatitis of undetermined etiology. 2. Acute myocardial infarction ruled out. 3. ST-T changes in the EKG. 4. Hyponatremia. 5. Elevated amylase and lipase. 6. Gastroesophageal reflux disease. 7. History of irritable bowel syndrome. 8. Left leg cellulitis. RECOMMENDATIONS AND DISCUSSION: I recommend to continue current medication, continue symptomatic treatment. Otherwise, at this time, I would recommend continue symptomatic treatment. Continue with antibiotics. We will await culture report. Otherwise, guarded prognosis because of multiple complex medical issues. Further recommendations to follow. MMODL / IJN: [id number] /
[2019-05-21] MEDS: SODIUM CHLORIDE 0.9% 1,000 ML IV SCH ×2 (00:03→09:14)
--- NOTE | 2019-05-21 00:04 | PN ---
PROGRESS NOTE DATE OF SERVICE: 05/20/2019. REASON FOR FOLLOWUP: Left leg wound and cellulitis. INTERVAL HISTORY: The patient is currently afebrile. Patient abdominal pain has improved. Denies having any chest pain. No shortness of breath or cough and left leg pain and swelling has improved. No drainage. PHYSICAL EXAMINATION: Blood pressure 129/66, pulse of 80, temperature 98.1. She is 95% on room air. General description is a middle-aged female lying in bed in no distress. Respiratory system: Unlabored breathing. Clear to auscultation anteriorly. Heart S1, S2. Regular rate and rhythm. Abdomen soft, no tenderness, left leg wound with minimal slough tissue surrounding area has improved no drainage. LABS: Hemoglobin is 12.2, white count 9.0, BUN of 9, creatinine 0.68. Wound culture with Staph aureus. DIAGNOSTIC IMPRESSION AND PLAN: Patient with a left leg wound with secondary cellulitis, culture with Staph aureus. The patient is covered with vancomycin. Will await for the culture finalized: Shows antibiotics. Local wound care with [facility]. Continue supportive care. MMODL / IJN: [id number] /
[2019-05-21 07:22] LABS: Anisocytosis Slight; Basophils % (A) 0 %; Eosinophils # (A) 0.2 k/uL (0-0.7); Eosinophils % (A) 3 %; HCT 34.6 % (34.0-46.0); HGB 11.1 gm/dL (11.4-16.0); Lymphocytes # (A) 0.9 k/uL (1.0-4.8); Lymphocytes % (A) 16 %; MCH 25.6 pg (25.0-35.0); MCHC 32.1 g/dL (31.0-37.0); MCV 79.8 fL (80.0-100.0); Mean Platelet Volume 7.2; Monocytes # (A) 0.3 k/uL (0-1.0); Monocytes % (A) 4 %; Neutrophils # (A) 4.4 k/uL (1.3-7.7); Neutrophils % (A) 75 %; Platelet Count 202 k/uL (150-450); RBC 4.33 m/uL (3.80-5.40); WBC 5.9 k/uL (3.8-10.6)
[2019-05-21] MEDS ORDERED: PANTOPRAZOLE 40 MG TABLET PO SCH (07:30)
[2019-05-21 07:32] LABS: ALT 24 U/L (9-52); AST 23 U/L (14-36); African American GFR (CKD) >90 (>60 ml/min/1.73 sqM); Albumin 3.3 g/dL (3.5-5.0); Alkaline Phosphatase 86 U/L (38-126); Amylase 101 U/L (30-110); Anion Gap 9 mmol/L; Blood Urea Nitrogen 6 mg/dL (7-17); Calcium 8.2 mg/dL (8.4-10.2); Carbon Dioxide 20 mmol/L (22-30); Chloride 108 mmol/L (98-107); Glucose 147 mg/dL (74-99); Potassium 3.9 mmol/L (3.5-5.1); Sodium 137 mmol/L (137-145); Total Bilirubin 0.5 mg/dL (0.2-1.3); Total Protein 6.2 g/dL (6.3-8.2)
[2019-05-21] MEDS: VANCOMYCIN 1,500 MG in SODIUM CHLORIDE 0.9% 250 ML IVPB SCH (09:13)
--- NOTE | 2019-05-21 10:41 | P.PN ---
Subjective This is a pleasant 48-year-old female past medical history significant for reflux disease. She denies history of hypertension, dyslipidemia, diabetes mellitus or coronary artery disease. She is currently being treated for acute pancreatitis. We are following secondary to an abnormal EKG. She is seen and examined sitting up in bed in no acute distress. She denies chest pain, shortness of breath, dizziness or palpitations. Blood pressure 147/78 heart rate 80 afebrile and maintaining oxygen saturation on room air. Laboratory data reviewed, WBC 5.9, hgb 11.1, plt 202, sodium 137, potassium 3.9, creatinine 0.59, amylase 101, lipase 774. Echocardiogram has been obtained and will be reviewed prior to discharge. GENERAL: This is a 48-year-old female in no apparent distress at the time of my examination. HEENT: Head is atraumatic, normocephalic. Pupils are equal, round. Sclerae anicteric. Conjunctivae are clear. Mucous membranes of the mouth are moist. Neck is supple. There is no jugular venous distention. No carotid bruit is heard. LUNGS: Clear to auscultation no wheezes, rales or rhonchi. No chest wall tenderness is noted on palpation or with deep breathing. HEART: Regular rate and rhythm without murmurs, rubs or gallops. S1 and S2 heard. EXTREMITIES: No evidence of peripheral edema and no calf tenderness noted. ASSESSMENT Epigastric discomfort. An acute coronary event has been ruled out. Abnormal EKG Acute pancreatitis PLAN Stable from a cardiac perspective. Follow up with Dr. Montenegro in 2 weeks for outpatient stress testing. Nurse Practitioner note has been reviewed, I agree with a documented findings and plan of care. Patient was seen and examined. Objective - Vital Signs Vital signs: Vital Signs Temp 98.1 F 05/21/19 00:35 Pulse 80 05/21/19 00:35 Resp 16 05/21/19 04:12 BP 147/78 05/21/19 00:35 Pulse Ox 98 05/21/19 00:35 Intake & Output 05/20/19 05/21/19 05/21/19 18:59 06:59 18:59 Intake Total 720 750 222 Balance 720 750 222 Intake: Intake, IV Titration 750 Amount Sodium Chloride 0.9% 1, 750 000 ml @ 125 mls/hr IV . Q8H [facility] Rx#:[id number] Oral 720 222 Other: # Voids 2 - Labs CBC & Chem 7: 05/21/19 06:15 05/21/19 06:15 Labs: Abnormal Lab Results - Last 24 Hours (Table) 05/21/19 05/21/19 Range/Units 06:15 06:15 Hgb 11.1 L (11.4-16.0) gm/dL MCV 79.8 L (80.0-100.0) fL RDW 16.0 H (11.5-15.5) % Lymphocytes # 0.9 L (1.0-4.8) k/uL Chloride 108 H (98-107) mmol/L Carbon Dioxide 20 L (22-30) mmol/L BUN 6 L (7-17) mg/dL Glucose 147 H (74-99) mg/dL Calcium 8.2 L (8.4-10.2) mg/dL Total Protein 6.2 L (6.3-8.2) g/dL Albumin 3.3 L (3.5-5.0) g/dL Lipase 774 H (23-300) U/L Microbiology - Last 24 Hours (Table) 05/19/19 17:00 Gram Stain - Preliminary Leg - Left Wound Culture - Preliminary Presumptive Staph aureus
[2019-05-21 12:02] VITALS: BP 163/84; PULSE 71; RESP 15; TEMP 97.8
--- NOTE | 2019-05-21 12:02 | ECHOF ---
Referral Reason:cad? MEASUREMENTS -------- HEIGHT: 152.4 cm WEIGHT: 90.7 kg BP: 147/78 RVIDd: 2.3 cm (< 3.3) IVSd: 1.1 cm (0.6 - 1.1) LVIDd: 4.3 cm (3.9 - 5.3) LVPWd: 1.0 cm (0.6 - 1.1) IVSs: 1.3 cm LVIDs: 2.9 cm LVPWs: 1.5 cm LA Diam: 3.0 cm (2.7 - 3.8) LAESV Index (A-L): 21.40 ml/m Ao Diam: 2.8 cm (2.0 - 3.7) AV Cusp: 1.7 cm (1.5 - 2.6) LA Diam: 3.3 cm (2.7 - 3.8) MV EXCURSION: 21.171 mm (> 18.000) MV EF SLOPE: 84 mm/s (70 - 150) EPSS: 0.3 cm MV E Lazaro: 1.16 m/s MV DecT: 168 ms MV A Lazaro: 1.01 m/s MV E/A Ratio: 1.14 RAP: 5.00 mmHg RVSP: 13.00 mmHg FINDINGS -------- Sinus rhythm. This was a technically adequate study. LV size, wall thickness and systolic function are normal, with an EF greater than 55%. The left vic tricular size is normal. The diastolic filling pattern is normal for the age of the patient 14.22. The right ventricle is normal in size. Normal LA size by volume 22+/-6 ml/m2. The right atrial size is normal. The aortic valve is trileaflet, and appears structurally normal. No aortic stenosis or regurgitation. The mitral valve is normal. Mild mitral regurgitation is present. Mild tricuspid regurgitation present. There is no evidence of pulmonary hypertension. The right v entricular systolic pressure, as measured by Doppler, is 13.00mmHg. There is no pulmonic regurgitation present. The aortic root size is normal. There is no pericardial effusion. CONCLUSIONS -------- 1. Sinus rhythm. 2. This was a technically adequate study. 3. LV size, wall thickness and systolic function are normal, with an EF greater than 55%. 4. The left ventricular size is normal. 5. The diastolic filling pattern is normal for the age of the patient 14.22 6. Normal LA size by volume 22+/-6 ml/m2. 7. The aortic valve is trileaflet, and appears structurally normal. No aortic stenosis or regurgitati on. 8. Mild mitral regurgitation is present. 9. Mild tricuspid regurgitation present. 10. There is no evidence of pulmonary hypertension. 11. There is no pulmonic regurgitation present. 12. The aortic root size is normal. 13. There is no pericardial effusion. [employer]: Michelle Gandhi RDCS
--- NOTE | 2019-05-21 16:20 | PN ---
PROGRESS NOTE DATE OF SERVICE: 05/21/2019 REASON FOR FOLLOWUP: Left leg wound with MSSA infection. INTERVAL HISTORY: The patient is currently afebrile, has been breathing comfortably. Denies having any chest pain or any cough. No nausea, no vomiting, no abdominal pain or pain to the left leg wound area. PHYSICAL EXAMINATION: Blood pressure 163/84 with a pulse of 71, temperature 97.8. She is 98% on room air. General description is a middle-aged female up in the bed in no distress. RESPIRATORY SYSTEM: Unlabored breathing. Clear to auscultation anteriorly. Left leg wound with minimal slough tissue. Surrounding redness has improved. No drainage. LABS: Wound culture with presumptive Staph aureus, but not MRSA. White count 5.9 with a creatinine 0.59. DIAGNOSTIC IMPRESSION AND PLAN: Patient with left leg wound with secondary cellulitis. Culture positive for Staph aureus, not MRSA. Antibiotic was switched over to Keflex 500 mg p.o. every 8 hours for 10 days. Prescription has been sent down to the pharmacy. Local wound care with [facility]. Follow up in the wound care center next week. MMODL / IJN: [id number] /
--- NOTE | 2019-05-22 06:27 | DS ---
DISCHARGE SUMMARY DATE OF SERVICE: 05/21/2019 FINAL DIAGNOSES: 1. Acute pancreatitis of undetermined etiology, improving. 2. Acute myocardial infarction ruled out. 3. ST-T changes on the EKG. 4. Hyponatremia. 5. Elevated amylase and lipase. 6. Gastroesophageal reflux disease. 7. History of irritable bowel syndrome. 8. Left leg cellulitis with presumptive Staphylococcus aureus. DISCHARGE DISPOSITION: The patient will be discharged in stable condition with guarded prognosis. HISTORY OF PRESENT ILLNESS: This 48-year-old woman with a past medical history of multiple medical problems being followed by Dr. Tomlin in the outpatient setting admitted with abdominal pain and features of acute pancreatitis. The gallbladder ultrasound was unremarkable. The CTA was negative for pulmonary embolism and CT of the pancreas was with evidence of acute pancreatitis. The patient was treated symptomatically. The patient improved significantly. The patient also had cellulitis, treated with antibiotics. Presumptive Staph was grown. Dr. Onofre from Infectious Disease recommending Keflex at this time. No chest pain. No palpitations. No fever. Gastroenterology saw the patient. On exam, vitals are stable. CARDIOVASCULAR: S1, S2 muffled. ABDOMEN: Soft, nontender. NERVOUS SYSTEM: No focal deficits. I recommend the patient to follow up closely with primary Dr. Tomlin and Dr. Montenegro for follow and follow-up CAT scan in few months to ensure normalcy instability. Otherwise, I would also recommend follow up with Dr. Montenegro, Cardiology, for possible stress test also. DISCHARGE ADVICE: 1. Diet is cardiac. 2. Activity limited until followup. 3. Followups as mentioned earlier. 4. Follow up with Dr. Tomlin, Gastroenterology, Cardiology as recommended. MEDICATIONS: 1. Bentyl 10 mg p.r.n. 2. Zantac 150 mg b.i.d. p.r.n. 3. Keflex 500 mg q.8. 4. Tylenol p.r.n. FOLLOW-UP LABS: CBC, CMP, amylase, lipase with Dr. Tomlin. Once again, the patient will be discharged in stable condition with guarded prognosis. MMODL / IJN: [id number] /
[2019-05-22] MEDS ORDERED: VANCOMYCIN TROUGH DUE 1 EACH MISC MISCELLANE ONE (07:00)
== END 2019-05-21 14:05 | disposition home or self-care (01) | DRG 439 ==
LOC: EC 13:08 → 4SSUR 16:21 → 3NMEDONC 05-21 11:04
PROVIDERS: ADMIT Hospitalist; ATTEND Hospitalist
DX: K85.90 Acute pancreatitis without necrosis or infection, unspecified (principal); E87.1 Hypo-osmolality and hyponatremia; L03.116 Cellulitis of left lower limb; B95.61 Methicillin susceptible Staphylococcus aureus infection as the cause of diseases classified elsewhere; K21.9 Gastro-esophageal reflux disease without esophagitis; K29.70 Gastritis, unspecified, without bleeding; K58.9 Irritable bowel syndrome, unspecified; K76.0 Fatty (change of) liver, not elsewhere classified; K86.89 Other specified diseases of pancreas; R56.9 Unspecified convulsions; R16.0 Hepatomegaly, not elsewhere classified
CPT/HCPCS: 36415; 71046; 71275; 74177; 76705; 80053; 80061; 81001; 82150; 83690; 83735; 83880; 84484; 85025; 85379; 85610; 85730; 87070; 87077; 87186; 87205; 93005; 93306; 96361; 96365; 96366; 96375; 99285

== ENCOUNTER → 2019-07-04 | Outpatient (CLI) | payer BC | END | disposition home or self-care (01) | LOC: RADMRIMAIN 07:21 | PROVIDERS: ATTEND Nurse Practitioner | DX: Z53.9 Procedure and treatment not carried out, unspecified reason (principal) ==